=== PATIENT | male | born 1970 | race Caucasian/White ===

== ENCOUNTER 2022-03-20 06:59 | Emergency (ER) | payer OTHER, BC, SELFPAY ==
[2022-03-20] VITALS (16 sets, daily range): BP systolic 126–151; BP diastolic 91–115; PULSE 69–81; RESP 18; TEMP 36.4; O2SAT 94–100; BMI 34.9
--- NOTE | 2022-03-20 07:42 | ED.CHESTPAIN ---
HPI - Chest Pain General Chief Complaint: Chest Pain <Francisco Petersen MD - Last Filed: 03/20/22 07:49> Stated Complaint: Chest pain/BP 171/98 <Francisco Petersen MD - Last Filed: 03/20/22 07:49> Time Seen by Provider: 03/20/22 07:06 <Francisco Petersen MD - Last Filed: 03/20/22 07:49> History of Present Illness HPI narrative: Pt is a 51 year old with a history of hypertension who awoke this morning with chest pain. The pain is in the middle of his chest and does extend down his left arm as a tingling. Pt states he felt well last night but awoke with these symptoms this morning. Pt went out and had some drinks last night and felt like he rested well but his found him on the floor next to the bed this morning. Pt has no head or neck pain. Pt has had no history of heart issues. No other pain. No diaphoresis, nausea or vomiting. Pt states the pain is dull and again does extend down the left arm. No aggrevating or alieviating factors. Pain persists at 5/10. No treatment prior to arrival. No other symptoms. Pt does not take medication for his hypertension. <Francisco Petersen MD - Last Filed: 03/20/22 07:49> Related Data Allergies/Adverse Reactions: Allergies Allergy/AdvReac Type Severity Reaction Status Date / Time latex Allergy Verified 03/20/22 07:15 <Francisco Petersen MD - Last Filed: 03/20/22 07:49> Review of Systems Status of ROS Reports: 10 or more systems reviewed and unremarkable except as noted in History and below <Francisco Petersen MD - Last Filed: 03/20/22 07:49> [facility] Medical History: Medical History (Updated 03/20/22 @ 10:21 by Braxton Singer MD) Finger amputation, traumatic Hypertension <Francisco Petersen MD - Last Filed: 03/20/22 07:49> Social History: Social History Smoking Status: Never smoker Do you use any of these nicotine containing products: None Second hand tobacco smoke exposure: No How often do you have a drink containing alcohol: 4 or more times a week How many standard drinks containing alcohol do you have on a typical day: 5 or 6 How often do you have six or more drinks on one occasion: Daily or almost daily AUDIT-C Alcohol total score: 10 Non-prescribed substance use: denies use <Francisco Petersen MD - Last Filed: 03/20/22 07:49> Exam Narrative Exam Narrative: EXAM GENERAL: Patient appears comfortable and well. EYES: No scleral icterus. ENT: Tympanic membranes and oropharynx normal. THYROID: no thyroid nodules or thyromegaly. LYMPH: No supraclavicular or cervical lymphadenopathy. SKIN: Visible skin seen during exam normal or with benign process only. EXT: No dependent lower extremity pedal edema. Patient is missing 2 fingers right hand. HEART: Regular rate and rhythm with no murmurs, rubs, or gallops. LUNGS: Clear to auscultation bilaterally with no crackles or wheezes. ABD: Soft, non tender, non distended. PSYCH: Good eye contact, speech is not pressured. <Francisco Petersen MD - Last Filed: 03/20/22 07:49> Const Vital Signs, click to edit/add: Vital Signs - 24 hr 03/20/22 07:09 03/20/22 07:15 03/20/22 07:16 Temperature 97.6 F Pulse Rate 69 77 Pulse Rate [Right Pulse Oximeter] 72 Respiratory Rate 18 Blood Pressure 126/104 H Blood Pressure [Right Upper Arm] 146/91 H Pulse Oximetry 96 97 94 Oxygen Delivery Method Room Air 03/20/22 07:17 03/20/22 07:30 03/20/22 07:32 Temperature Pulse Rate 81 73 72 Pulse Rate [Right Pulse Oximeter] Respiratory Rate Blood Pressure 131/103 H Blood Pressure [Right Upper Arm] Pulse Oximetry 98 99 99 Oxygen Delivery Method 03/20/22 08:00 03/20/22 08:01 03/20/22 08:30 Temperature Pulse Rate 77 77 76 Pulse Rate [Right Pulse Oximeter] Respiratory Rate Blood Pressure 146/103 H Blood Pressure [Right Upper Arm] Pulse Oximetry 100 98 99 Oxygen Delivery Method 03/20/22 08:32 03/20/22 09:00 03/20/22 09:02 Temperature Pulse Rate 76 76 Pulse Rate [Right Pulse Oximeter] Respiratory Rate Blood Pressure 135/115 H 140/96 H Blood Pressure [Right Upper Arm] Pulse Oximetry 97 98 Oxygen Delivery Method 03/20/22 09:30 03/20/22 09:32 03/20/22 10:00 Temperature Pulse Rate 75 77 79 Pulse Rate [Right Pulse Oximeter] Respiratory Rate Blood Pressure 151/109 H Blood Pressure [Right Upper Arm] Pulse Oximetry 99 98 98 Oxygen Delivery Method 03/20/22 10:02 Temperature Pulse Rate 69 Pulse Rate [Right Pulse Oximeter] Respiratory Rate Blood Pressure 141/100 H Blood Pressure [Right Upper Arm] Pulse Oximetry 97 Oxygen Delivery Method <Francisco Petersen MD - Last Filed: 03/20/22 07:49> Vital Signs - 24 hr 03/20/22 07:09 03/20/22 07:15 03/20/22 07:16 Temperature 97.6 F Pulse Rate 69 77 Pulse Rate [Right Pulse Oximeter] 72 Respiratory Rate 18 Blood Pressure 126/104 H Blood Pressure [Right Upper Arm] 146/91 H Pulse Oximetry 96 97 94 Oxygen Delivery Method Room Air 03/20/22 07:17 03/20/22 07:30 03/20/22 07:32 Temperature Pulse Rate 81 73 72 Pulse Rate [Right Pulse Oximeter] Respiratory Rate Blood Pressure 131/103 H Blood Pressure [Right Upper Arm] Pulse Oximetry 98 99 99 Oxygen Delivery Method 03/20/22 08:00 03/20/22 08:01 03/20/22 08:30 Temperature Pulse Rate 77 77 76 Pulse Rate [Right Pulse Oximeter] Respiratory Rate Blood Pressure 146/103 H Blood Pressure [Right Upper Arm] Pulse Oximetry 100 98 99 Oxygen Delivery Method 03/20/22 08:32 03/20/22 09:00 03/20/22 09:02 Temperature Pulse Rate 76 76 Pulse Rate [Right Pulse Oximeter] Respiratory Rate Blood Pressure 135/115 H 140/96 H Blood Pressure [Right Upper Arm] Pulse Oximetry 97 98 Oxygen Delivery Method 03/20/22 09:30 03/20/22 09:32 03/20/22 10:00 Temperature Pulse Rate 75 77 79 Pulse Rate [Right Pulse Oximeter] Respiratory Rate Blood Pressure 151/109 H Blood Pressure [Right Upper Arm] Pulse Oximetry 99 98 98 Oxygen Delivery Method 03/20/22 10:02 Temperature Pulse Rate 69 Pulse Rate [Right Pulse Oximeter] Respiratory Rate Blood Pressure 141/100 H Blood Pressure [Right Upper Arm] Pulse Oximetry 97 Oxygen Delivery Method <Braxton Singer MD - Last Filed: 03/20/22 11:37> Course Course Hospital Course: Pt seen and examined. No signs of injury. EKG upon my review NSR no acute changes. Troponin, Portable chest, d-dimer, cbc, bmp ordered. Patient was signed out over to me by the outgoing emergency room physician, troponins x2 is normal EKG x2 is normal, D-dimer was normal, but given history, I thought it would be appropriate to do a CT of the chest, this did show evidence of large cystic mass which is either in the stomach or possibly the tail of the pancreas, differential here includes pancreatic pseudocyst verses a primary gastric issue. Which is felt to be less likely by Radiology on my discussion with him. They (radiology) suggested abdomen and pelvis MRI with and without contrast. This is told to the patient, and he has a follow-up actually today at the [facility], for physical and blood pressure check. I do think some of his issues stem from his use of alcohol, and this likely is the cause of his hypertension. I can find no definitive cardiac cause for his of fall possible syncopal episode, yesterday. Other than possibly alcohol related <Francisco Petersen MD - Last Filed: 03/20/22 07:49> Vital Signs Vital signs: Initial Vital Signs Temperature 97.6 F 03/20/22 07:09 Temperature Source Temporal Artery Scan 03/20/22 07:09 Pulse Rate 72 03/20/22 07:09 Respiratory Rate 18 03/20/22 07:09 Blood Pressure 146/91 H 03/20/22 07:09 Blood Pressure Mean 109 03/20/22 07:09 Blood Pressure Position Sitting 03/20/22 07:09 Pulse Oximetry 96 03/20/22 07:09 Oxygen Delivery Method 03/20/22 07:09 Vital Signs Temperature 97.6 F 03/20/22 07:09 Pulse Rate 72 03/20/22 07:09 Respiratory Rate 18 03/20/22 07:09 Blood Pressure 146/91 H 03/20/22 07:09 Pulse Oximetry 96 03/20/22 07:09 Oxygen Delivery Method 03/20/22 07:09 Temperature 97.6 F 03/20/22 07:09 Pulse Rate 69 03/20/22 10:02 Respiratory Rate 18 03/20/22 07:09 Blood Pressure 141/100 H 03/20/22 10:02 Pulse Oximetry 97 03/20/22 10:02 Oxygen Delivery Method 03/20/22 07:09 <Francisco Petersen MD - Last Filed: 03/20/22 07:49> Initial Vital Signs Temperature 97.6 F 03/20/22 07:09 Temperature Source Temporal Artery Scan 03/20/22 07:09 Pulse Rate 72 03/20/22 07:09 Respiratory Rate 18 03/20/22 07:09 Blood Pressure 146/91 H 03/20/22 07:09 Blood Pressure Mean 109 03/20/22 07:09 Blood Pressure Position Sitting 03/20/22 07:09 Pulse Oximetry 96 03/20/22 07:09 Oxygen Delivery Method 03/20/22 07:09 Vital Signs Temperature 97.6 F 03/20/22 07:09 Pulse Rate 72 03/20/22 07:09 Respiratory Rate 18 03/20/22 07:09 Blood Pressure 146/91 H 03/20/22 07:09 Pulse Oximetry 96 03/20/22 07:09 Oxygen Delivery Method 03/20/22 07:09 Temperature 97.6 F 03/20/22 07:09 Pulse Rate 69 03/20/22 10:02 Respiratory Rate 18 03/20/22 07:09 Blood Pressure 141/100 H 03/20/22 10:02 Pulse Oximetry 97 03/20/22 10:02 Oxygen Delivery Method 03/20/22 07:09 <Braxton Singer MD - Last Filed: 03/20/22 11:37> MDM - Chest Pain MDM Narrative Medical decision making narrative: During the evaluation of this patient I considered multiple differential diagnosis is. The life-threatening differential diagnosis include coronary disease/AK, pulmonary embolism, pneumothorax, pneumonia, and aortic dissection. Other differential diagnosis included but were not limited to pericarditis, myocarditis, chest wall pain, GERD, esophageal rupture, rib fracture contusion, pleurisy, as well as other etiologies. <Braxton Singer MD - Last Filed: 03/20/22 11:37> Medical Records Data Attestation: I reviewed the patient's medical records. <Braxton Singer MD - Last Filed: 03/20/22 11:37> Lab Data Attestation: I reviewed the patient's lab results. <Braxton Singer MD - Last Filed: 03/20/22 11:37> Labs: Lab Results 03/20/22 03/20/22 03/20/22 Range/Units 07:25 07:25 07:25 WBC 5.40 (4.50-11.00) K/uL RBC 5.30 (4.30-5.90) m/uL Hgb 16.4 (13.5-17.5) gm/dL Hct 48.5 (37.0-53.0) % MCV 92 (80-100) fL MCH 31 (26-34) pg MCHC 34 (32-36) gm/dL RDW Coeff of Aram 12.3 (11.5-15.5) % Plt Count 202 (140-440) K/uL Neut % (Auto) 64.0 (42.0-72.0) % Lymph % (Auto) 21.7 (20-44) % [place] % (Auto) 9.1 (0.0-11.0) % Eos % (Auto) 4.6 (0.0-7.0) % Baso % (Auto) 0.6 (0.0-3.0) % Neut # (Auto) 3.46 (1.7-7.0) K/uL Lymph # (Auto) 1.17 (0.90-2.90) K/uL [place] # (Auto) 0.50 (0.00-0.90) K/UL Eos # (Auto) 0.25 (0.00-0.50) K/uL Baso # (Auto) 0.03 (0.00-0.30) K/uL Abs Immat Gran (auto) 0.00 (0.00-0.30) K/uL D-Dimer Quant (PE/DVT) 0.27 (0.00-0.50) ug/ml Sodium 142 (135-149) mmol/L Potassium 4.4 (3.6-5.1) mmol/L Chloride 106 (96-114) mmol/L Carbon Dioxide 21 (20-32) mmol/L BUN 19 (5-24) mg/dL Creatinine 1.2 (0.5-1.5) mg/dL Estimated Creat Clear 79.31 Estimated GFR 74 ml/min Glucose 94 (60-115) mg/dL Calcium 8.1 L (8.4-10.6) mg/dL Total Bilirubin 0.7 (0.1-1.5) mg/dL AST 56 H (12-35) U/L ALT 35 (4-50) U/L Alkaline Phosphatase 62 (40-150) U/L Troponin I < 0.01 L (0.01-0.04) ng/mL Total Protein 8.1 (6.0-8.3) g/dL Albumin 4.9 (3.3-5.0) g/dL Lipase (23-300) U/L Urine Opiates Screen (Negative) Ur Buprenorphine Scrn (Negative) Ur Oxycodone Screen (Negative) Urine Methadone Screen (Negative) Ur Propoxyphene Screen (Negative) Ur Barbiturates Screen (Negative) U Tricyclic Antidepress (Negative) Ur Phencyclidine Scrn (Negative) Ur Amphetamines Screen (Negative) U Methamphetamines Scrn (Negative) U Benzodiazepines Scrn (Negative) Urine Cocaine Screen (Negative) U Marijuana (THC) Screen (Negative) Ur Drug Screen Comment Ethyl Alcohol 0.08 H (0.01-0.03) % POC Troponin I (0.01-0.04) ng/ml 03/20/22 03/20/22 03/20/22 Range/Units 09:18 09:32 09:40 WBC (4.50-11.00) K/uL RBC (4.30-5.90) m/uL Hgb (13.5-17.5) gm/dL Hct (37.0-53.0) % MCV (80-100) fL MCH (26-34) pg MCHC (32-36) gm/dL RDW Coeff of Aram (11.5-15.5) % Plt Count (140-440) K/uL Neut % (Auto) (42.0-72.0) % Lymph % (Auto) (20-44) % [place] % (Auto) (0.0-11.0) % Eos % (Auto) (0.0-7.0) % Baso % (Auto) (0.0-3.0) % Neut # (Auto) (1.7-7.0) K/uL Lymph # (Auto) (0.90-2.90) K/uL [place] # (Auto) (0.00-0.90) K/UL Eos # (Auto) (0.00-0.50) K/uL Baso # (Auto) (0.00-0.30) K/uL Abs Immat Gran (auto) (0.00-0.30) K/uL D-Dimer Quant (PE/DVT) (0.00-0.50) ug/ml Sodium (135-149) mmol/L Potassium (3.6-5.1) mmol/L Chloride (96-114) mmol/L Carbon Dioxide (20-32) mmol/L BUN (5-24) mg/dL Creatinine (0.5-1.5) mg/dL Estimated Creat Clear Estimated GFR ml/min Glucose (60-115) mg/dL Calcium (8.4-10.6) mg/dL Total Bilirubin (0.1-1.5) mg/dL AST (12-35) U/L ALT (4-50) U/L Alkaline Phosphatase (40-150) U/L Troponin I (0.01-0.04) ng/mL Total Protein (6.0-8.3) g/dL Albumin (3.3-5.0) g/dL Lipase 107 (23-300) U/L Urine Opiates Screen Negative (Negative) Ur Buprenorphine Scrn Negative (Negative) Ur Oxycodone Screen Negative (Negative) Urine Methadone Screen Negative (Negative) Ur Propoxyphene Screen Negative (Negative) Ur Barbiturates Screen Negative (Negative) U Tricyclic Antidepress Negative (Negative) Ur Phencyclidine Scrn Negative (Negative) Ur Amphetamines Screen Negative (Negative) U Methamphetamines Scrn Negative (Negative) U Benzodiazepines Scrn Negative (Negative) Urine Cocaine Screen Negative (Negative) U Marijuana (THC) Screen Negative (Negative) Ur Drug Screen Comment See Note Ethyl Alcohol (0.01-0.03) % POC Troponin I 0.00 L (0.01-0.04) ng/ml <Francisco Petersen MD - Last Filed: 03/20/22 07:49> Lab Results 03/20/22 03/20/22 03/20/22 Range/Units 07:25 07:25 07:25 WBC 5.40 (4.50-11.00) K/uL RBC 5.30 (4.30-5.90) m/uL Hgb 16.4 (13.5-17.5) gm/dL Hct 48.5 (37.0-53.0) % MCV 92 (80-100) fL MCH 31 (26-34) pg MCHC 34 (32-36) gm/dL RDW Coeff of Aram 12.3 (11.5-15.5) % Plt Count 202 (140-440) K/uL Neut % (Auto) 64.0 (42.0-72.0) % Lymph % (Auto) 21.7 (20-44) % [place] % (Auto) 9.1 (0.0-11.0) % Eos % (Auto) 4.6 (0.0-7.0) % Baso % (Auto) 0.6 (0.0-3.0) % Neut # (Auto) 3.46 (1.7-7.0) K/uL Lymph # (Auto) 1.17 (0.90-2.90) K/uL [place] # (Auto) 0.50 (0.00-0.90) K/UL Eos # (Auto) 0.25 (0.00-0.50) K/uL Baso # (Auto) 0.03 (0.00-0.30) K/uL Abs Immat Gran (auto) 0.00 (0.00-0.30) K/uL D-Dimer Quant (PE/DVT) 0.27 (0.00-0.50) ug/ml Sodium 142 (135-149) mmol/L Potassium 4.4 (3.6-5.1) mmol/L Chloride 106 (96-114) mmol/L Carbon Dioxide 21 (20-32) mmol/L BUN 19 (5-24) mg/dL Creatinine 1.2 (0.5-1.5) mg/dL Estimated Creat Clear 79.31 Estimated GFR 74 ml/min Glucose 94 (60-115) mg/dL Calcium 8.1 L (8.4-10.6) mg/dL Total Bilirubin 0.7 (0.1-1.5) mg/dL AST 56 H (12-35) U/L ALT 35 (4-50) U/L Alkaline Phosphatase 62 (40-150) U/L Troponin I < 0.01 L (0.01-0.04) ng/mL Total Protein 8.1 (6.0-8.3) g/dL Albumin 4.9 (3.3-5.0) g/dL Lipase (23-300) U/L Urine Opiates Screen (Negative) Ur Buprenorphine Scrn (Negative) Ur Oxycodone Screen (Negative) Urine Methadone Screen (Negative) Ur Propoxyphene Screen (Negative) Ur Barbiturates Screen (Negative) U Tricyclic Antidepress (Negative) Ur Phencyclidine Scrn (Negative) Ur Amphetamines Screen (Negative) U Methamphetamines Scrn (Negative) U Benzodiazepines Scrn (Negative) Urine Cocaine Screen (Negative) U Marijuana (THC) Screen (Negative) Ur Drug Screen Comment Ethyl Alcohol 0.08 H (0.01-0.03) % POC Troponin I (0.01-0.04) ng/ml 03/20/22 03/20/22 03/20/22 Range/Units 09:18 09:32 09:40 WBC (4.50-11.00) K/uL RBC (4.30-5.90) m/uL Hgb (13.5-17.5) gm/dL Hct (37.0-53.0) % MCV (80-100) fL MCH (26-34) pg MCHC (32-36) gm/dL RDW Coeff of Aram (11.5-15.5) % Plt Count (140-440) K/uL Neut % (Auto) (42.0-72.0) % Lymph % (Auto) (20-44) % [place] % (Auto) (0.0-11.0) % Eos % (Auto) (0.0-7.0) % Baso % (Auto) (0.0-3.0) % Neut # (Auto) (1.7-7.0) K/uL Lymph # (Auto) (0.90-2.90) K/uL [place] # (Auto) (0.00-0.90) K/UL Eos # (Auto) (0.00-0.50) K/uL Baso # (Auto) (0.00-0.30) K/uL Abs Immat Gran (auto) (0.00-0.30) K/uL D-Dimer Quant (PE/DVT) (0.00-0.50) ug/ml Sodium (135-149) mmol/L Potassium (3.6-5.1) mmol/L Chloride (96-114) mmol/L Carbon Dioxide (20-32) mmol/L BUN (5-24) mg/dL Creatinine (0.5-1.5) mg/dL Estimated Creat Clear Estimated GFR ml/min Glucose (60-115) mg/dL Calcium (8.4-10.6) mg/dL Total Bilirubin (0.1-1.5) mg/dL AST (12-35) U/L ALT (4-50) U/L Alkaline Phosphatase (40-150) U/L Troponin I (0.01-0.04) ng/mL Total Protein (6.0-8.3) g/dL Albumin (3.3-5.0) g/dL Lipase 107 (23-300) U/L Urine Opiates Screen Negative (Negative) Ur Buprenorphine Scrn Negative (Negative) Ur Oxycodone Screen Negative (Negative) Urine Methadone Screen Negative (Negative) Ur Propoxyphene Screen Negative (Negative) Ur Barbiturates Screen Negative (Negative) U Tricyclic Antidepress Negative (Negative) Ur Phencyclidine Scrn Negative (Negative) Ur Amphetamines Screen Negative (Negative) U Methamphetamines Scrn Negative (Negative) U Benzodiazepines Scrn Negative (Negative) Urine Cocaine Screen Negative (Negative) U Marijuana (THC) Screen Negative (Negative) Ur Drug Screen Comment See Note Ethyl Alcohol (0.01-0.03) % POC Troponin I 0.00 L (0.01-0.04) ng/ml <Braxton Singer MD - Last Filed: 03/20/22 11:37> ECG Data ECG interpretation date: 03/20/22 <Braxton Singer MD - Last Filed: 03/20/22 11:37> Interpretation: EKG shows normal sinus rhythm, normal EKG with no acute ST wave changes. X2 <Braxton Singer MD - Last Filed: 03/20/22 11:37> Discharge Plan Discharge Clinical Impression: Chest pain, Hypertension, Cyst of abdomen, Alcohol intake above recommended sensible limits <Francisco Petersen MD - Last Filed: 03/20/22 07:49> Patient Disposition: Home w/ Parent or Adult <Francisco Petersen MD - Last Filed: 03/20/22 07:49> Condition: Stable <Francisco Petersen MD - Last Filed: 03/20/22 07:49> Instructions: Chest Pain (DC), Abuse of Alcohol (DC), Chronic Hypertension (ED), Alcohol Withdrawal (DC) <Francisco Petersen MD - Last Filed: 03/20/22 07:49> Additional Instructions: Home rest follow-up with her appointment with the [facility] later today, recommend abstinence from alcohol, as this is causing multiple issues I suspect for you. The hypertension, and cyst I believe her from this. He will need follow-up abdominal MRI with and without contrast, for this suspected cyst which is either in her pancreas than his pseudocyst or possibly in her stomach. If it is in her stomach then you will need endoscopy. The blood pressure can be made much better by avoidance of alcohol, and you may not need medications if you follow my directions. The workup for chest pain was all normal, with normal EKGs, normal troponins, a normal test for blood clot. I wonder if it was a combination of factors last night that caused due to pass out and have amnesia. Follow up here if increasing chest pain shortness of breath with exertion, passing out or other issues. <Francisco Petersen MD - Last Filed: 03/20/22 07:49> Stand Alone Forms: MyHealth Info Instructions <Francisco Petersen MD - Last Filed: 03/20/22 07:49>
--- NOTE | 2022-03-20 07:49 | CRLHL7_ITS ---
For Patients: As a result of the Century Cures Act, medical imaging exams and procedure reports are released immediately into your electronic medical record. You may view this report before your referring provider. If you have questions, please contact your health care provider. INDICATION: Chest pain. TECHNIQUE: Chest 1 views. COMPARISON: None. FINDINGS: Cardiovascular and mediastinum: Heart size and vasculature are normal in caliber and appearance. Lungs and pleural spaces: Lungs are clear. No sign of infiltrate or mass. No sign of pleural effusion. No pneumothorax. Bones and soft tissues: No significant findings. IMPRESSION: No acute or significant findings. Dictated by Andrew Avitia MD @ 03/20/2022 8:09:28 AM (Electronically Signed)
[2022-03-20 08:06] LABS: Basophils Absolute Auto 0.03 K/uL (0.00-0.30); Basophils Percent Auto 0.6 % (0.0-3.0); Eosinophils Absolute Auto 0.25 K/uL (0.00-0.50); Eosinophils Percent Auto 4.6 % (0.0-7.0); Hematocrit 48.5 % (37.0-53.0); Hemoglobin* 16.4 gm/dL (13.5-17.5); Lymphocytes Absolute Auto 1.17 K/uL (0.90-2.90); Lymphocytes Percent Auto 21.7 % (20-44); Mean Corpuscular HGB Conc 34 gm/dL (32-36); Mean Corpuscular Hemoglobin 31 pg (26-34); Mean Corpuscular Volume 92 fL (80-100); Monocytes Percent Auto 9.1 % (0.0-11.0); Neutrophils Absolute Auto 3.46 K/uL (1.7-7.0); Platelet Count* 202 K/uL (140-440); RDW Coefficient of Variation % 12.3 % (11.5-15.5)
[2022-03-20 08:14] LABS: Slide Review Reflex No
[2022-03-20 08:17] LABS: D Dimer Quantitative* 0.27 ug/ml (0.00-0.50)
[2022-03-20 08:21] LABS: Albumin* 4.9 g/dL (3.3-5.0); Chloride* 106 mmol/L (96-114); Potassium* 4.4 mmol/L (3.6-5.1); Sodium* 142 mmol/L (135-149)
[2022-03-20 08:23] LABS: Carbon Dioxide* 21 mmol/L (20-32); Creatinine* 1.2 mg/dL (0.5-1.5); Est. Creatinine Clearance* 79.31; Estimated Glomerular Filt Rate 74 ml/min
[2022-03-20 08:24] LABS: Alanine Aminotransferase* 35 U/L (4-50); Alkaline Phosphatase* 62 U/L (40-150); Aspartate Amino Transferase* 56 U/L (12-35); Bilirubin Total* 0.7 mg/dL (0.1-1.5); Blood Urea Nitrogen* 19 mg/dL (5-24); Calcium* 8.1 mg/dL (8.4-10.6); Glucose* 94 mg/dL (60-115); Total Protein* 8.1 g/dL (6.0-8.3)
--- NOTE | 2022-03-20 08:30 | CRLHL7_ITS ---
For Patients: As a result of the Century Cures Act, medical imaging exams and procedure reports are released immediately into your electronic medical record. You may view this report before your referring provider. If you have questions, please contact your health care provider. INDICATION: Syncope, left-sided chest pain. TECHNIQUE: CT chest PE was acquired with 95 cc Isovue 370 IV contrast. COMPARISON: None. FINDINGS: Heart and vasculature: Contrast opacification of the pulmonary arterial tree is adequate. No sign of pulmonary embolism. Heart size is normal. Thoracic aorta and pulmonary artery are normal in caliber. Lungs and pleural: No suspicious nodules or infiltrates. No pleural effusions, pleural thickening, or pneumothorax. Lymph nodes/mediastinum: No mediastinal, hilar, or axillary adenopathy. Chest wall: No masses. Upper abdomen: Small dependent stones in the gallbladder. Mild splenomegaly. Mass lesion in the stomach along the lesser curvature measuring 4.8 x 4.8 x 4.4 cm. Mass lesion is relatively hypodense although not definite fat density. No irregularity or enhancement to be highly suggestive of gastrointestinal stromal tumor. No lymphadenopathy in the upper abdomen. Bones: Unremarkable for age. Old healed left rib fractures. Schmorl`s node in the superior endplate of T11. Mild central depression of the superior endplate of T3 and T4 likely due to degenerative change. IMPRESSION: 1. No evidence of pulmonary embolism. 2. Smooth hypodense oval mass lesion along the lesser curvature of the stomach which appears to be within the stomach or arising from the tail of the pancreas pressing into the stomach. The lesion does not have fat density to suggest lipoma. Gastrointestinal tumor is thought less likely given appearance of the lesion. Pancreatic cystic lesion/pseudocyst would also be a more likely consideration. Recommend MRI of the abdomen with without contrast. Ultimately endoscopy may be needed for further evaluation. 3. Cholelithiasis. 4. Spleen is mildly enlarged. Findings conveyed to Dr. Singer at 9:20 a.m. on 03/20/2022. Please note that all CT scans at this facility use dose modulation, iterative reconstruction, and/or weight-based dosing when appropriate to reduce radiation dose to as low as reasonably achievable. Dictated by Andrew Avitia MD @ 03/20/2022 9:22:10 AM (Electronically Signed)
--- NOTE | 2022-03-20 08:30 | CRLHL7_ITS ---
For Patients: As a result of the Century Cures Act, medical imaging exams and procedure reports are released immediately into your electronic medical record. You may view this report before your referring provider. If you have questions, please contact your health care provider. INDICATION: fall, amnesia TECHNIQUE: CT head without contrast. COMPARISON: None. FINDINGS: The garrett-white differentiation is normal. No sign of intracranial hemorrhage, or midline shift. No extra-axial fluid collection. Basilar cisterns are patent. Mild central greater than peripheral volume loss with associated ex vacuo dilatation of the supratentorial ventricles. Mild scattered paranasal mucosal sinus thickening. The visualized orbits are grossly unremarkable. No skull fractures. IMPRESSION: Mild central greater than peripheral volume loss with associated ex vacuo dilatation of the supratentorial ventricles. No evidence of acute intracranial abnormality on this unenhanced head CT. Please note that all CT scans at this facility use dose modulation, iterative reconstruction, and/or weight-based dosing when appropriate to reduce radiation dose to as low as reasonably achievable. Dictated by Jeronimo Palacios MD @ 03/20/2022 9:24:42 AM (Electronically Signed)
[2022-03-20 08:46] LABS: Ethanol* 0.08 % (0.01-0.03)
[2022-03-20 08:53] LABS: Troponin I* < 0.01 ng/mL (0.01-0.04)
[2022-03-20] MEDS: 0.9 % SODIUM CHLORIDE 1000 ml 1,000 ML IV (08:56)
[2022-03-20] MEDS: ASPIRIN 81 MG TAB.CHEW 324 MG PO (08:56)
[2022-03-20 10:06] LABS: Amphetamine Screen Urine Negative (Negative); Barbiturate Screen Urine Negative (Negative); Benzodiazepines Screen Urine Negative (Negative); Buprenorphine Screen Urine Negative (Negative); Cannabinoid Screen Urine Negative (Negative); Cocaine Screen Urine Negative (Negative); Methadone Screen Urine Negative (Negative); Methamphetamines Screen Urine Negative (Negative); Opiate Screen Urine Negative (Negative); Oxycodone Screen Urine Negative (Negative); Phencyclidine Screen Urine Negative (Negative); Tricyclic Antidepressant Urine Negative (Negative)
[2022-03-20 10:43] LABS: Lipase* 107 U/L (23-300)
== END 2022-03-20 10:36 | disposition home or self-care (01) ==
PROVIDERS: Internal Medicine; Emergency Provider Family Medicine
DX: R07.9 Chest pain, unspecified (principal); I10 Essential (primary) hypertension; F10.10 Alcohol abuse, uncomplicated
CPT/HCPCS: 36415; 70450; 71045; 71260; 80053; 80306; 82077; 83690; 84484; 85025; 85379; 93005; 99285; A9270; J7030; Q9967